=== PATIENT | male | born 1975 ===

== ENCOUNTER 2016-05-25 06:11 | Inpatient (IN) | payer OTHER ==
[~2016-05-25 06:11] MED LIST: ACETAMINOPHEN 325 MG TAB PO ONE; CEFAZOLIN 2 GM/DEXTR 100 ML IV ONE; CHLORHEXIDINE GLUC HIBICLENS 118 ML BTL TP ONE; DEXAMETHASONE 4 MG/ML VIAL IVP ONE; FAMOTIDINE 20 MG TAB PO ONE; ROPI/epiNEPH/KETOROLAC/morphINE JOINT COCKTAIL IU ONE
[2016-05-25] MEDS ORDERED: THROMBIN (RECOMBINANT) 5,000 UNIT VIAL TP ONE (06:33)
[2016-05-25] MEDS ORDERED: CALCIUM CHLORIDE 1 GM/10 ML INJ ONE (06:33)
[2016-05-25] MEDS ORDERED: BACITRACIN 50,000 UNITS/10 ML SYR IRR ONE (06:34)
[2016-05-25] MEDS ORDERED: POLYMYXIN B SULFATE 500,000 UNIT/10 ML SYR IRR ONE (06:34)
[2016-05-25] MEDS ORDERED: LIDOCAINE 1% 5 ML SDV ONE (06:36)
[2016-05-25] MEDS ORDERED: LR 1,000 ML IV ONE (06:52)
[2016-05-25] MEDS ORDERED: LIDOCAINE 1% 5 ML SDV ID PRN (06:52)
[2016-05-25] MEDS ORDERED: MIDAZOLAM 2 MG/2 ML VIAL ONE (07:09)
[2016-05-25] MEDS ORDERED: PROPOFOL/EMULSION 500 MG/50 ML BOTTLE IV ONE ×2 (07:12→07:54)
[2016-05-25] MEDS ORDERED: fentaNYL 100 MCG/2 ML INJ ONE ×2 (07:12→09:40)
[2016-05-25] MEDS ORDERED: KETOROLAC 30 MG/1 ML SDV ONE (08:34)
[2016-05-25] MEDS ORDERED: ONDANSETRON 4 MG/2 ML VIAL ONE (08:34)
[2016-05-25] MEDS ORDERED: ROPIVACAINE HCL 150 MG/30 ML INJ ONE (08:58)
[2016-05-25] MEDS ORDERED: METOCLOPRAMIDE 10 MG/2 ML VIAL IVP PRN (09:33)
[2016-05-25] MEDS ORDERED: diphenhydrAMINE 25 MG CAP PO PRN (09:33)
[2016-05-25] MEDS ORDERED: PROMETHAZINE HCL 25 MG/ML INJ IVP PRN (09:33)
[2016-05-25] MEDS ORDERED: LACTULOSE 20 GM/30 ML UDCUP PO PRN (09:33)
[2016-05-25] MEDS ORDERED: TAPENTADOL HCL 50 MG TAB PO PRN (09:33)
[2016-05-25] MEDS ORDERED: MAGNESIUM HYDROXIDE 30 ML UDCUP PO PRN (09:33)
[2016-05-25] MEDS ORDERED: CYCLOBENZAPRINE 10 MG TAB PO PRN (09:33)
[2016-05-25] MEDS ORDERED: TEMAZEPAM 15 MG CAP PO PRN (09:33)
[2016-05-25] MEDS ORDERED: BISACODYL 10 MG SUPP PR PRN (09:33)
[2016-05-25] MEDS ORDERED: ONDANSETRON DISINTEGRATING 4 MG TAB PO PRN (09:33)
[2016-05-25] MEDS ORDERED: POLYETHYLENE GLYCOL 3350 17 GM PKT PO PRN (09:33)
[2016-05-25] MEDS ORDERED: PHARMACY PAIN CONSULT 1 EA MISC PRN (09:33)
[2016-05-25] MEDS ORDERED: DIPHENOXYLATE/ATROPINE LOMOTIL 1 TAB PO PRN (09:33)
[2016-05-25] MEDS ORDERED: ONDANSETRON 4 MG/2 ML VIAL IVP PRN (09:33)
[2016-05-25] MEDS ORDERED: PROMETHAZINE HCL 25 MG SUPPR PR PRN (09:33)
--- NOTE | 2016-05-25 09:33 | POSTOPPROG ---
Post Op Note Date of Operation: 05/25/16 Surgeon: Monique Snyder Laser Operator: dennis Anesthesiologist: perez Anesthesia: Epidural Pre-op Diagnosis: l knee oa Procedure: l tkr Inf/Abcess present in the surg proc area at time of surgery?: No Depth: Deep Incisional (Fascial) EBL: 100-500
[2016-05-25] MEDS ORDERED: LR 1,000 ML IV SCH (10:00)
--- NOTE | 2016-05-25 11:15 | GOP ---
DATE OF OPERATION: 05/25/2016 SURGEON: Monique Snyder MD EYEGLASS FITTER: MIRIAM Macias, whose presence was medically necessary. ANESTHESIA: By epidural nerve block. PREOPERATIVE DIAGNOSIS: Left knee osteoarthritis. POSTOPERATIVE DIAGNOSIS: Left knee osteoarthritis. PROCEDURE PERFORMED: Left total knee arthroplasty. FINDINGS: INDICATIONS: This is a 40-year-old male with a long history of left knee pain worsening with use an d with time. MRI exam reveals severe osteoarthritic changes medially, and moderate changes of the p atellofemoral and lateral compartments. He wishes to have surgery in order to resolve the problem. DESCRIPTION OF PROCEDURE: The patient was brought to the operating room, after the left side had be en identified as correct side by the patient nurse physician. Once in the operating room, he was gi amadou an epidural nerve block. He was then placed in the supine position with a tourniquet placed eliana und the upper portion of the left lower extremity. The left lower extremity was then sterilely prep ped and draped in the usual fashion using GSI solution. Once prepped and draped, the limb was exsan guinated and the tourniquet inflated to 250 mmHg. An incision was made on the anterior portion of the knee 1 handbreadth above and below the patella, and with sharp dissection, carried down through the skin and subcutaneous layers with bleeding contr olled using electrocautery. A medial parapatellar incision was made through the extensor mechanism with the patella brought to the side, but not everted. The medial and lateral meniscus, along with the ACL, were removed. He was noted to have severe osteoarthritic changes medially and more moderat e changes to the patellofemoral and lateral compartments. A custom made jig was placed on the distal end of the femur with lug holes drilled for that jig, and then a custom made end cutting guide was put into place, noted to fit securely and pins were drille d for the end cutting block. The guide was removed. An oscillating saw was used to remove the dist al portion of the femur using the end cutting block. Once completed, the block was removed. Anothe r custom made 3 in 1 cutting block was placed on the cut surface of the femur. Once locked into ximena ce using pins, lug holes were drilled for the femoral component, and the anterior, posterior and ant erior chamfer cuts were made. This guide was removed and another custom guide was placed into the l ug holes at the end of the femur with the posterior chamfer cuts made. A trial femoral component wa s put into place and noted to fit securely. The knee was able to achieve full extension. The trial was removed and the knee brought to maximal flexion. The soft tissue surrounding the proximal port ion of the tibia was removed in order to allow proper fit of the custom-made tibial jig. Once the c ustom made tibial jig was put into place and noted to be in good inclination and varus/valgus, it wa s pinned into place and noted to fit securely. An oscillating saw was used to remove the proximal p ortion of the tibia. Tibial trial and femoral trial were put into place. The knee was noted to be able to achieve full extension. Therefore, the trials were removed, the knee brought back to full f lexion, the tibial guide pinned into place and the tibial drill and keel punch were passed through t he guide. The trial was removed. The knee was brought to extension. The patella was then everted. It was measured to be 25 mm in thickness. Oscillating saw was used to remove the posterior portio n of the patella leaving 16 mm of bone. Multiple sizes were trialed on the cut surfaces of the hurst lla noting a 35 mm patellar button seemed to fit best. Lug holes were drilled for a 35 mm patella. All cut surfaces of bone were then thoroughly irrigated with antibiotic solution using pulsatile la vage while the cement was being mixed. Once the cement was mixed and it was doughy, it was placed i n the proximal portion of the tibia with a custom-made tibial component from [employer], put into pl ethan with excess cement removed using a [employer] elevator. Cement was then placed on the posterior skid s of the femoral component and then cement was placed on the distal and anterior portions of the fem ur, with a custom made left cruciate retaining femoral component from [employer], put into place wit h excess cement removed using a [employer] elevator. Trial polyethylene liners were placed in the tibial tray. The knee was brought to full extension under pressurized cement. Cement was placed on the p osterior portion of the patella with a 35 mm patellar button, clamped into place and excess cement r emoved using a [employer] elevator. Once cement had hardened, the knee was noted to have excellent track ing. Any excess cement was removed using a [employer] elevator, osteotome and rongeur. Once completed, since the knee was able to achieve full extension, had excellent stability in flexion and extension, the trial liners were removed and a lateral A insert was placed in the tibial tray and a medial 6 m m insert was placed in the tibial tray. Once completed, the tourniquet was released at 60 minutes. Any bleeding was controlled using electr ocautery. A joint cocktail was injected along the periosteum of the posterior capsule. The wound w as then closed with 0 Vicryl suture in a [id number] type stitch to the extensor mechanism, with plasma gel placed intra-articularly. 0 Vicryl and 2-0 Vicryl suture were used to close subcutaneou s layers, with plasma gel placed external to the extensor mechanism. A 3-0 V-Loc suture in a runnin g subcuticular stitch for the skin. The wound was dressed with Steri-Strips, Xeroform, 4x4s, and Ke rlix. The leg was completely undraped in the operating room. The tourniquet was removed from the t [facility] and an Ethan wrap placed around the knee. He was then transferred onto a stretcher and sent to [facility] recovery room in good condition. TOURNIQUET TIME: 60 minutes. /[id number]/MODL
[2016-05-25] MEDS: traMADol 50 MG TAB PO SCH ×2 (13:01→17:59)
[2016-05-25] MEDS: ACETAMINOPHEN 325 MG TAB PO SCH ×2 (13:01→17:59)
[2016-05-25] MEDS: ceFAZolin 2 GM/DEXTROSE 100 ML IV SCH ×2 (14:20→21:08)
[2016-05-25] MEDS: KETOROLAC 30 MG/1 ML SDV IVP SCH ×2 (17:15→17:58)
[2016-05-25] MEDS: SENNOSIDES/DOCUSATE SODIUM TAB PO SCH (19:46)
[2016-05-25] MEDS: FAMOTIDINE 20 MG TAB PO SCH (19:46)
[2016-05-26] MEDS: ACETAMINOPHEN 325 MG TAB PO SCH ×5 (00:09→23:47)
[2016-05-26] MEDS: KETOROLAC 30 MG/1 ML SDV IVP SCH ×5 (00:10→23:47)
[2016-05-26] MEDS: traMADol 50 MG TAB PO SCH ×5 (00:10→23:47)
[2016-05-26 05:12] LABS: HEMATOCRIT 38.7 % (40.0-51.0); HEMOGLOBIN 13.2 g/dL (13.7-17.5)
[2016-05-26] MEDS: LISINOPRIL 10 MG TAB PO SCH (07:55)
[2016-05-26] MEDS: RIVAROXABAN 10 MG TAB PO SCH (09:06)
[2016-05-26] MEDS: FAMOTIDINE 20 MG TAB PO SCH ×2 (09:07→20:01)
[2016-05-26] MEDS: SENNOSIDES/DOCUSATE SODIUM TAB PO SCH ×2 (09:07→20:01)
[2016-05-26] MEDS: oxyCODONE IR 5 MG TAB PO PRN ×2 (09:09→18:33)
[2016-05-27] MEDS: oxyCODONE IR 5 MG TAB PO PRN ×4 (03:25→23:48)
[2016-05-27] MEDS: traMADol 50 MG TAB PO SCH ×4 (05:38→23:47)
[2016-05-27] MEDS: KETOROLAC 30 MG/1 ML SDV IVP SCH ×4 (05:39→23:55)
[2016-05-27] MEDS: ACETAMINOPHEN 325 MG TAB PO SCH ×4 (05:39→23:47)
[2016-05-27 05:51] LABS: HEMATOCRIT 37.4 % (40.0-51.0); HEMOGLOBIN 12.9 g/dL (13.7-17.5)
[2016-05-27] MEDS: LISINOPRIL 10 MG TAB PO SCH (11:04)
[2016-05-27] MEDS: FAMOTIDINE 20 MG TAB PO SCH ×2 (11:04→21:42)
[2016-05-27] MEDS: SENNOSIDES/DOCUSATE SODIUM TAB PO SCH ×2 (11:04→21:42)
[2016-05-27] MEDS: RIVAROXABAN 10 MG TAB PO SCH (11:04)
--- NOTE | 2016-05-27 12:33 | SOAPPROG ---
JAMIL Progress Note Assessment/Plan: Assessment: POD 2 Plan: - if he passes with PT today he can go home - Pt is aware of the signs of compartment syndrome 05/27/16 12:31 Subjective: Mod/severe pain distal left quad, denies claudication, some minor numbness lateral to the incision. Has not done stairs, cannot SLR. Objective: Vital Signs Temp Pulse Resp BP Pulse Ox 36.6 C 84 16 136/85 H 96 05/27/16 08:00 05/27/16 08:00 05/27/16 08:00 05/27/16 08:00 05/27/16 08:00 Laboratory Results 05/27/16 04:38 05/26/16 05/27/16 05/28/16 05:59 05:59 05:59 Intake Total 2375 1250 Output Total 2025 500 Balance 350 750 Wound CDI, no bleeding, severe swelling of knee and quad, compartments are somewhat tense but non-tender, no evidence of compartment syndrome. NVI distally , pulses 2+ - Time Spent With Patient Time Spent With Patient: 20 - Pending Discharge Pending Discharge Within 24 Hours: Yes Pending Discharge Within 48 Hours: No Pending Discharge Date: 05/28/16 Pending Discharge Time: 11:00 ICD10 Worksheet Patient Problems: Problems Problem Status Onset Arthritis of left knee Acute - ICD10 Problem Qualifiers (1) Arthritis of left knee
[2016-05-28] MEDS: traMADol 50 MG TAB PO SCH ×3 (05:45→14:02)
[2016-05-28] MEDS: oxyCODONE IR 5 MG TAB PO PRN (05:45)
[2016-05-28] MEDS: ACETAMINOPHEN 325 MG TAB PO SCH ×2 (05:45→10:46)
[2016-05-28] MEDS: KETOROLAC 30 MG/1 ML SDV IVP SCH ×2 (05:47→12:59)
[2016-05-28 09:25] VITALS: BP 136/87; PULSE 90; RESP 16; TEMP 98; O2SAT 90
--- NOTE | 2016-05-28 10:02 | SOAPPROG ---
SOAP Progress Note Assessment/Plan: Assessment: POD 2 Plan: - if he passes with PT today he can go home - Pt is aware of the signs of compartment syndrome - d/c home 05/27/16 12:31 05/28/16 10:02 Subjective: Ready for d/c Objective: Vital Signs Temp Pulse Resp BP Pulse Ox 36.6 C 90 16 136/87 H 90 L 05/28/16 09:24 05/28/16 09:24 05/28/16 09:24 05/28/16 09:24 05/28/16 09:24 Laboratory Results 05/27/16 04:38 05/27/16 05/28/16 05/29/16 05:59 05:59 05:59 Intake Total 1250 600 Output Total 500 Balance 750 600 - Time Spent With Patient Time Spent With Patient: 5 - Pending Discharge Pending Discharge Within 24 Hours: Yes Pending Discharge Within 48 Hours: No Pending Discharge Date: 05/29/16 Pending Discharge Time: 11:00 ICD10 Worksheet Patient Problems: Problems Problem Status Onset Arthritis of left knee Acute - ICD10 Problem Qualifiers (1) Arthritis of left knee
--- NOTE | 2016-05-28 10:09 | PDIAF ---
- Diagnosis Code Status: Full Code - Medication Management Discharge Medications: Medications to Continue on Transfer Lisinopril [Zestril 10 mg (*)] 10 mg PO DAILY 05/05/16 [Last Taken 05/24/16] Rivaroxaban [Xarelto 10mg (*)] 10 mg PO DAILY #0 tab 05/28/16 [Last Taken Unknown] Sennosides/Docusate Sodium [Senokot-S] 1 - 2 tab PO BID #0 tab 05/28/16 [Last Taken Unknown] oxyCODONE IR [Oxycodone Ir (*)] 5 - 10 mg PO Q3HRS PRN #0 tab 05/28/16 [Last Taken Unknown] Discharge Medications: Refer to the Discharge Home Medication list for PRN reason. PICC Care - Routine: N/A - Orders Services needed: Physical Therapy Diet Recommendation: no restrictions on diet Diet Texture: Regular Texture Diet [place]: Not applicable Wound Care Instructions: Keep dressing on, may shower over dressing Sutures/[place] Site: L knee, remove in office Activity/Weight Bearing Restrictions: WBAT, should use knee brace locked - Follow Up Care Current Providers and Referrals: Dedrick Watson MD [Primary Care Provider] -
[2016-05-28] MEDS: RIVAROXABAN 10 MG TAB PO SCH (10:46)
[2016-05-28] MEDS: LISINOPRIL 10 MG TAB PO SCH (10:46)
[2016-05-28] MEDS: FAMOTIDINE 20 MG TAB PO SCH (10:47)
--- NOTE | 2016-05-28 11:20 | GDS ---
[f rep st] DISCHARGE SUMMARY DATE OF SURGERY: 05/25/2016 PREOPERATIVE DIAGNOSIS: Left knee osteoarthritis. PROCEDURE PERFORMED: Left total knee arthroplasty. HISTORY OF PRESENT ILLNESS: The patient is a 40-year-old male with a long history of left knee pain worsening with time. Made a decision to proceed forward with a total knee replacement. Surgery was performed on 05/25/2016. HOSPITAL COURSE: Hospital course fairly uneventful. Patient had some moderate to severe pain the 1st day after surgery, which progressively improved to the point where he was able to be discharged to home with home physical therapy services. PHYSICAL EXAMINATION: GENERAL: He is alert and oriented, no acute distress. CARDIAC: Exam shows a regular rate and rhythm, normal S1, S2. PULMONARY: Exam shows lungs are clear bilaterally. EXTREMITIES: Examination of left knee shows the incision to be clean, dry, and intact. No drainage. There is a moderate effusion, moderate swelling. Range of motion is approximately 10 degrees to 90 degrees, stable to varus and valgus stress and neurovascularly intact distally with no evidence of DVT. X-RAYS: Postoperative x-rays show the hardware to be in good position with excellent alignment. MEDICATIONS: Medications are outlined in the discharge summary. He will be on Xarelto for 10 days postoperatively to help control blood clots. He will also be using oxycodone for pain control. DISPOSITION: Patient will be discharged to home with home physical therapy services. ASSESSMENT AND PLAN: Patient is 3 days status post total knee arthroplasty. He will keep the dressing on for the 1st week postoperatively and it will be removed in the office. He may shower over the dressing. His weightbearing status is weightbearing as tolerated with a knee brace on in a locked position until he can straight leg raise and hold for 5 seconds. He has an existing followup in 2 weeks after the surgery. /[id number]/MODL MTDD
[2016-05-28] MEDS: SENNOSIDES/DOCUSATE SODIUM TAB PO SCH (11:24)
== END 2016-05-28 14:43 | disposition home health service (06) | DRG 470 ==
LOC: F3N 06:11
PROVIDERS: ADMIT Orthopaedic Surgery; ATTEND Orthopaedic Surgery
PROC: 0SRD0J9 Replacement of Left Knee Joint with Synthetic Substitute, Cemented, Open Approach (ICD-10-PCS; principal; 2016-05-25 07:15)
DX: M17.12 Unilateral primary osteoarthritis, left knee (principal); I10 Essential (primary) hypertension
CPT/HCPCS: 97110-GP; 97116-GP; 97161-GP; 97165-GO; C1713; J0171; J0690; J1100; J1885; J2250; J2405; J2704; J2795; J3010; L1832